=== PATIENT | female | born 1935 | race Caucasian/White ===

== ENCOUNTER 2019-10-21 10:45 | Inpatient (IN) | payer MEDICAID ==
[~2019-10-21] VITALS: Ht 152.4 cm; Wt 73.0 kg
[2019-10-21] MEDS ORDERED: ASPIRIN 81MG TABLET PO ONE (11:00)
[2019-10-21] MEDS ORDERED: FUROSEMIDE 40MG/4ML VIAL IV ONE (11:00)
[2019-10-21 11:21] LABS: BG BASE EXCESS 0.5 mmol/L (-2.0-2.0); BG CARBOXYHEMOGLOBIN 0.9 % (0.5-1.5); BG DEOXYHEMOGLOBIN 1.4 % (0.0-5.0); BG FRACTION INSPIRED OXYGEN 40; BG HCO3 ACT 23.5 mmol/L (22.0-26.0); BG METHEMOGLOBIN 0.2 % (0.0-1.5); BG OXYGEN SATURATION 98.6 % (92.0-98.5); BG OXYHEMOGLOBIN 97.5 % (94.0-97.0); BG PCO2 33.4 mmHg (35.0-45.0); BG PH 7.466 (7.350-7.450); BG SAMPLE SITE RIGHT RADIAL; BG VENT MODE MASK - BIPAP
[2019-10-21 11:22] LABS: BASOPHILS % 0.6 % (0.0-2.0); EOSINOPHILS % 0.3 % (0.0-5.0); HEMATOCRIT. 39.6 % (36.0-48.0); HEMOGLOBIN. 13.4 g/dL (12.0-16.0); LYMPHOCYTES % 8.8 % (20.0-50.0); MEAN CORPUSCULAR HEMOGLOBIN 31.7 pg (28.0-32.0); MEAN CORPUSCULAR VOLUME 93.9 fL (81.0-99.0); MEAN PLATELET VOLUME 10.9 fl (7.4-10.4); MONOCYTES % 4.5 % (2.0-8.0); NEUTROPHILS % 85.8 % (40.0-76.0); PLATELET 183 x1000/uL (130-400); RED BLOOD CELL COUNT 4.21 mill/uL (4.2-5.4); RED CELL DISTRIBUTION WIDTH 13.9 % (11.6-14.6)
[2019-10-21 11:26] LABS: CHLORIDE 106 mEq/L (98-107)
[2019-10-21 12:52] LABS: PROTHROMBIN TIME 10.4 sec (9.6-11.0)
[2019-10-21] MEDS ORDERED: DOCUSATE SODIUM 100MG CAPSULE PO PRN (20:45)
[2019-10-21] MEDS ORDERED: IPRATROPIUM/ALBUTEROL 0.5-3(2.5)MG/3ML NEB HHN PRN (20:45)
[2019-10-21] MEDS ORDERED: CLONIDINE 0.1MG TABLET PO PRN (20:45)
[2019-10-21] MEDS ORDERED: ONDANSETRON HCL 4MG/2ML INJ IV PRN (20:45)
[2019-10-21] MEDS ORDERED: HYDROCODONE/ACETAMINOPHEN 5/325MG TABLET PO PRN (20:45)
[2019-10-21] MEDS ORDERED: ACETAMINOPHEN 325MG TABLET PO PRN (20:45)
[2019-10-21 21:30] VITALS: BP 136/77
[2019-10-21 21:40] VITALS: BP 126/77
[2019-10-21] MEDS: LORAZEPAM 0.5MG TABLET PO PRN (23:08)
[2019-10-22] VITALS: BP 107/63
[2019-10-22] MEDS ORDERED: ASPI-1393 PO (00:10)
[2019-10-22] MEDS ORDERED: LOSA50TA41 PO (00:10)
[2019-10-22] MEDS ORDERED: LORA0.5T2 PO (00:10)
[2019-10-22] MEDS ORDERED: CARV6.2548 PO (00:10)
[2019-10-22] MEDS ORDERED: POTA10CA42 PO (00:10)
[2019-10-22] MEDS ORDERED: FURO40TA5 PO (00:10)
[2019-10-22 04:00] VITALS: BP 126/67
[2019-10-22 07:17] LABS: CHLORIDE 106 mEq/L (98-107)
[2019-10-22 07:20] LABS: BASOPHILS % 0.7 % (0.0-2.0); EOSINOPHILS % 1.3 % (0.0-5.0); HEMOGLOBIN. 13.1 g/dL (12.0-16.0); MEAN CORPUSCULAR HEMOGLOBIN 32.6 pg (28.0-32.0); MEAN CORPUSCULAR VOLUME 94.5 fL (81.0-99.0); MEAN PLATELET VOLUME 11.2 fl (7.4-10.4); MONOCYTES % 7.5 % (2.0-8.0); NEUTROPHILS % 74.5 % (40.0-76.0); PLATELET 159 x1000/uL (130-400); RED BLOOD CELL COUNT 4.02 mill/uL (4.2-5.4); RED CELL DISTRIBUTION WIDTH 13.7 % (11.6-14.6)
[2019-10-22 07:23] LABS: PHOSPHORUS 2.5 mg/dL (2.5-4.9)
[2019-10-22 07:24] LABS: LDL CHOLESTEROL 117 mg/dL (5-100)
[2019-10-22 07:26] LABS: HDL CHOLESTEROL 49 mg/dL (40-59)
[2019-10-22 08:00] VITALS: BP 108/44
[2019-10-22] MEDS: CARVEDILOL 6.25 MG TABLET PO SCH ×2 (09:00→21:00)
[2019-10-22] MEDS ORDERED: POTASSIUM CHLORIDE 10MEQ TABLET SR PO SCH (09:00)
[2019-10-22] MEDS ORDERED: FUROSEMIDE 40MG TABLET PO SCH (09:00)
[2019-10-22] MEDS ORDERED: ENOXAPARIN 40MG/0.4ML SYR SUBCUT SCH (09:00)
[2019-10-22] MEDS: LOSARTAN POTASSIUM 50 MG TABLET PO SCH ×2 (09:00→21:00)
[2019-10-22] MEDS ORDERED: ASPIRIN 81MG EC TABLET PO SCH (09:00)
[2019-10-22] MEDS: FUROSEMIDE 40MG/4ML VIAL IVP SCH ×2 (11:32→17:58)
[2019-10-22 12:00] VITALS: BP 101/59
[2019-10-22] MEDS: APIXABAN 5 MG TABLET PO SCH ×2 (12:46→21:41)
[2019-10-22 16:00] VITALS: BP 106/60
[2019-10-22 16:15] LABS: CLARITY URINE CLEAR (CLEAR); COLOR URINE YELLOW (YELLOW); KETONES URINE NEGATIVE (NEGATIVE); LEUKOCYTE ESTERASE URINE NEGATIVE (NEGATIVE); NITRITE URINE NEGATIVE (NEGATIVE); OCCULT BLOOD URINE NEGATIVE (NEGATIVE); PH URINE 6.5 (4.5-8.0); PROTEIN URINE NEGATIVE (NEGATIVE); SPECIFIC GRAVITY URINE 1.005 (1.005-1.030); UROBILINOGEN URINE 0.2 E.U./dL (0.2-1.0)
[2019-10-22 20:00] VITALS: BP 114/47
[2019-10-22] MEDS ORDERED: ATORVASTATIN CALCIUM 20MG TABLET PO SCH (21:00)
[2019-10-23] VITALS: BP 106/75
[2019-10-23] MEDS: LORAZEPAM 0.5MG TABLET PO PRN (01:31)
[2019-10-23 04:00] VITALS: BP 129/71
[2019-10-23 06:33] LABS: CHLORIDE 104 mEq/L (98-107)
[2019-10-23 06:38] LABS: BASOPHILS % 0.8 % (0.0-2.0); EOSINOPHILS % 1.2 % (0.0-5.0); HEMOGLOBIN. 13.2 g/dL (12.0-16.0); LYMPHOCYTES % 20.8 % (20.0-50.0); MEAN CORPUSCULAR HEMOGLOBIN 32.1 pg (28.0-32.0); MEAN CORPUSCULAR VOLUME 95.1 fL (81.0-99.0); MEAN PLATELET VOLUME 11.1 fl (7.4-10.4); MONOCYTES % 8.2 % (2.0-8.0); PLATELET 173 x1000/uL (130-400); RED CELL DISTRIBUTION WIDTH 13.7 % (11.6-14.6)
[2019-10-23 08:00] VITALS: BP 124/81
[2019-10-23] MEDS: CARVEDILOL 6.25 MG TABLET PO SCH (09:48)
[2019-10-23] MEDS: LOSARTAN POTASSIUM 50 MG TABLET PO SCH (09:48)
[2019-10-23] MEDS: APIXABAN 5 MG TABLET PO SCH (09:48)
[2019-10-23] MEDS: FUROSEMIDE 40MG/4ML VIAL IVP SCH (11:36)
[2019-10-23 12:00] VITALS: BP 83/44
[2019-10-23] MEDS ORDERED: POTASSIUM CHLORIDE 20MEQ/PACKET PO SCH (12:00)
[2019-10-23] MEDS ORDERED: APIX5TAB MT (13:39)
[2019-10-23 14:21] VITALS: BP 103/64
== END 2019-10-23 15:20 | disposition home or self-care (01) | DRG 194 ==
LOC: ER 10:45 → 6WST 12:15 → EDBEDREQ 12:22 → EDBEDREQSVC 12:22 → ENRESERV 20:03
PROVIDERS: ADMIT Internal Medicine; ATTEND Internal Medicine
PROC: 5A09357 Assistance with Respiratory Ventilation, Less than 24 Consecutive Hours, Continuous Positive Airway Pressure (ICD-10-PCS; principal; 2019-10-21)
DX: I11.0 Hypertensive heart disease with heart failure (principal); E87.4 Mixed disorder of acid-base balance; F03.90 Unspecified dementia, unspecified severity, without behavioral disturbance, psychotic disturbance, mood disturbance, and anxiety; I48.20 Chronic atrial fibrillation, unspecified; I44.7 Left bundle-branch block, unspecified; I50.23 Acute on chronic systolic (congestive) heart failure; E78.5 Hyperlipidemia, unspecified; I25.10 Atherosclerotic heart disease of native coronary artery without angina pectoris; K52.9 Noninfective gastroenteritis and colitis, unspecified; Z86.73 Personal history of transient ischemic attack (TIA), and cerebral infarction without residual deficits; I25.2 Old myocardial infarction; Z79.899 Other long term (current) drug therapy; Z79.82 Long term (current) use of aspirin
CPT/HCPCS: 36415; 36600; 71045; 80048; 80053; 80061; 81003; 82248; 82375; 82805; 83036; 83605; 83735; 83880; 84100; 84484; 85025; 87804; 93005; 93306; 94660; 96372; 99291; J1650; J1940; J7620

== ENCOUNTER 2019-12-09 03:55 | Inpatient (IN) | payer MEDICAID ==
[2019-12-09] VITALS (8 sets, daily range): BP systolic 118–139; BP diastolic 67–83
[~2019-12-09] VITALS: Ht 121.9 cm; Wt 68.9 kg
[~2019-12-09 03:55] MED LIST: APIX5TAB MT; CARV6.2548 PO; FURO40TA5 PO; LORA0.5T2 PO; LOSA50TA41 PO; POTA10CA42 PO
[2019-12-09 05:12] LABS: EOSINOPHILS % 0.7 % (0.0-5.0); HEMATOCRIT. 38.1 % (36.0-48.0); LYMPHOCYTES % 10.2 % (20.0-50.0); MEAN CORPUSCULAR HEMOGLOBIN 33.1 pg (28.0-32.0); MEAN CORPUSCULAR VOLUME 96.6 fL (81.0-99.0); MEAN PLATELET VOLUME 10.7 fl (7.4-10.4); MONOCYTES % 7.6 % (2.0-8.0); NEUTROPHILS % 80.5 % (40.0-76.0); PLATELET 165 x1000/uL (130-400); RED BLOOD CELL COUNT 3.94 mill/uL (4.2-5.4); RED CELL DISTRIBUTION WIDTH 14.3 % (11.6-14.6)
[2019-12-09 05:17] LABS: INR 1.1; PROTHROMBIN TIME 11.4 sec (9.6-11.0)
[2019-12-09 05:28] LABS: CHLORIDE 104 mEq/L (98-107)
[2019-12-09] MEDS ORDERED: DILTIAZEM HCL 5MG/ML 5ML VIAL IV ONE (05:30)
[2019-12-09] MEDS ORDERED: DILTIAZEM HCL 60MG TABLET PO ONE (06:00)
[2019-12-09] MEDS ORDERED: FUROSEMIDE 40MG/4ML VIAL IVP ONE (07:00)
[2019-12-09] MEDS ORDERED: ACETAMINOPHEN 325MG TABLET PO PRN (08:30)
[2019-12-09] MEDS ORDERED: ONDANSETRON HCL 4MG/2ML INJ IV PRN (08:30)
[2019-12-09] MEDS ORDERED: ASPI-864 PO (09:34)
[2019-12-09] MEDS: FUROSEMIDE 40MG/4ML VIAL IVP SCH ×2 (10:00→18:34)
[2019-12-09] MEDS: LOSARTAN POTASSIUM 25 MG TABLET PO SCH (10:32)
[2019-12-09] MEDS: CARVEDILOL 6.25 MG TABLET PO SCH ×2 (10:32→20:57)
[2019-12-09] MEDS: APIXABAN 5 MG TABLET PO SCH ×2 (10:32→18:34)
[2019-12-09] MEDS ORDERED: DILTIAZEM HCL 60MG TABLET PO SCH (12:00)
[2019-12-09] MEDS ORDERED: DIATR MEGLU/DIATRIZOATE SOLN 30ML PO SCH (14:15)
[2019-12-09 15:08] LABS: CLARITY URINE CLEAR (CLEAR); COLOR URINE YELLOW (YELLOW); KETONES URINE NEGATIVE (NEGATIVE); LEUKOCYTE ESTERASE URINE NEGATIVE (NEGATIVE); NITRITE URINE NEGATIVE (NEGATIVE); OCCULT BLOOD URINE NEGATIVE (NEGATIVE); PROTEIN URINE NEGATIVE (NEGATIVE); SPECIFIC GRAVITY URINE 1.005 (1.005-1.030); UROBILINOGEN URINE 0.2 E.U./dL (0.2-1.0)
[2019-12-09 17:42] LABS: CREATINE KINASE 63 IU/L (26-192)
[2019-12-09 17:43] LABS: T4 FREE 1.03 ng/dL (0.76-1.46)
[2019-12-09] MEDS: PANTOPRAZOLE SODIUM 40 MG/VIAL IV SCH (20:56)
[2019-12-09] MEDS ORDERED: FAMOTIDINE 20MG/2ML VIAL IV SCH (21:00)
[2019-12-09] MEDS ORDERED: IOHEXOL-300 100 ML BOTTLE ONE (22:14)
[2019-12-09] MEDS: LORAZEPAM 0.5MG TABLET PO SCH (23:12)
[2019-12-10] VITALS (11 sets, daily range): BP systolic 97–137; BP diastolic 45–99
[2019-12-10 00:15] LABS: CREATINE KINASE 107 IU/L (26-192)
[2019-12-10 00:16] LABS: CREATINE KINASE MB FRACTION 2.5 ng/mL (0.5-3.6)
[2019-12-10] MEDS: FUROSEMIDE 40MG/4ML VIAL IVP SCH ×2 (07:56→18:19)
[2019-12-10] MEDS: LOSARTAN POTASSIUM 25 MG TABLET PO SCH (08:08)
[2019-12-10] MEDS: CARVEDILOL 6.25 MG TABLET PO SCH ×2 (08:08→21:14)
[2019-12-10] MEDS: APIXABAN 5 MG TABLET PO SCH ×2 (08:09→16:47)
[2019-12-10] MEDS: PANTOPRAZOLE SODIUM 40 MG/VIAL IV SCH ×2 (08:48→21:12)
[2019-12-10 09:25] LABS: BASOPHILS % 1.1 % (0.0-2.0); HEMATOCRIT. 39.5 % (36.0-48.0); HEMOGLOBIN. 13.9 g/dL (12.0-16.0); LYMPHOCYTES % 16.2 % (20.0-50.0); MEAN CORPUSCULAR HEMOGLOBIN 33.7 pg (28.0-32.0); MEAN CORPUSCULAR VOLUME 95.8 fL (81.0-99.0); MEAN PLATELET VOLUME 10.2 fl (7.4-10.4); MONOCYTES % 8.1 % (2.0-8.0); NEUTROPHILS % 73.6 % (40.0-76.0); PLATELET 164 x1000/uL (130-400); RED BLOOD CELL COUNT 4.12 mill/uL (4.2-5.4)
[2019-12-10 09:36] LABS: CHLORIDE 99 mEq/L (98-107)
[2019-12-10 09:44] LABS: CREATINE KINASE 104 IU/L (26-192)
[2019-12-10 09:47] LABS: CREATINE KINASE MB FRACTION 2.3 ng/mL (0.5-3.6)
[2019-12-10] MEDS ORDERED: POTASSIUM CHLORIDE 20MEQ TABLET SR PO NR (11:00)
[2019-12-10] MEDS ORDERED: POTASSIUM CHLORIDE INJ 40 MEQ in DEXT 5% WATER 250 ML IV NR (12:00)
[2019-12-10] MEDS ORDERED: BACTERIOSTATIC SODIUM CHLORIDE 0.9% 30ML VIAL IJ ONE (14:08)
[2019-12-10] MEDS ORDERED: MIDAZOLAM HCL 5 MG/5 ML VIAL ONE (16:18)
[2019-12-10] MEDS ORDERED: FENTANYL CITRATE/PF 50MCG/ML 2ML VIAL ONE (16:18)
[2019-12-10] MEDS ORDERED: MIDAZOLAM HCL 5 MG/5 ML VIAL IV PRN (16:40)
[2019-12-10] MEDS: LORAZEPAM 0.5MG TABLET PO SCH (21:14)
[2019-12-10 21:28] LABS: HEMATOCRIT 42.6 % (36.0-48.0); HEMOGLOBIN 14.7 g/dL (12.0-16.0); MEAN CORPUSCULAR VOLUME 95.7 fL (81.0-99.0); PLATELET 177 x1000/uL (130-400); RED BLOOD CELL COUNT 4.45 mill/uL (4.2-5.4); RED CELL DISTRIBUTION WIDTH 14.4 % (11.6-14.6)
[2019-12-10 21:43] LABS: CHLORIDE 98 mEq/L (98-107)
[2019-12-10 22:19] LABS: HEPATITIS B SURFACE ANTIGEN NEGATIVE
[2019-12-10 22:49] LABS: HEPATITIS A AB IGM NEGATIVE (NEGATIVE)
[2019-12-11] VITALS: BP 136/94
[2019-12-11 04:00] VITALS: BP 106/56
[2019-12-11 08:00] VITALS: BP 101/66
[2019-12-11] MEDS: CARVEDILOL 6.25 MG TABLET PO SCH (09:00)
[2019-12-11] MEDS: LOSARTAN POTASSIUM 25 MG TABLET PO SCH (10:11)
[2019-12-11] MEDS: FUROSEMIDE 40MG/4ML VIAL IVP SCH ×2 (10:11→17:36)
[2019-12-11] MEDS: APIXABAN 5 MG TABLET PO SCH ×2 (10:12→17:36)
[2019-12-11 12:00] VITALS: BP 111/78
[2019-12-11 13:28] LABS: BASOPHILS % 1.2 % (0.0-2.0); EOSINOPHILS % 1.5 % (0.0-5.0); HEMATOCRIT. 42.1 % (36.0-48.0); HEMOGLOBIN. 14.4 g/dL (12.0-16.0); LYMPHOCYTES % 17.7 % (20.0-50.0); MEAN CORPUSCULAR HEMOGLOBIN 32.9 pg (28.0-32.0); MEAN CORPUSCULAR VOLUME 96.1 fL (81.0-99.0); MEAN PLATELET VOLUME 10.8 fl (7.4-10.4); MONOCYTES % 9.3 % (2.0-8.0); NEUTROPHILS % 70.3 % (40.0-76.0); PLATELET 208 x1000/uL (130-400); RED BLOOD CELL COUNT 4.39 mill/uL (4.2-5.4); RED CELL DISTRIBUTION WIDTH 14.1 % (11.6-14.6)
[2019-12-11] MEDS ORDERED: FURO-151 MT (14:14)
[2019-12-11 15:16] VITALS: BP 117/87
[2019-12-11 16:00] VITALS: BP 97/52
[2019-12-11] MEDS ORDERED: OMEPRAZOLE 20MG CAPSULE EXTENDED RELEASE PO SCH (21:00)
== END 2019-12-11 18:05 | disposition home or self-care (01) | DRG 133 ==
LOC: ER 03:55 → EDBEDREQTM 06:36 → EDBEDREQ 06:36 → EDBEDREQSVC 06:49 → 5EST 06:49 → EDBEDREQTM 06:49 → ENRESERV 07:39
PROVIDERS: ADMIT Internal Medicine; ATTEND Internal Medicine
PROC: 5A09357 Assistance with Respiratory Ventilation, Less than 24 Consecutive Hours, Continuous Positive Airway Pressure (ICD-10-PCS; 2019-12-09)
PROC: 0DB68ZX Excision of Stomach, Via Natural or Artificial Opening Endoscopic, Diagnostic (ICD-10-PCS; principal; 2019-12-10)
DX: J96.00 Acute respiratory failure, unspecified whether with hypoxia or hypercapnia (principal); I50.23 Acute on chronic systolic (congestive) heart failure; I42.9 Cardiomyopathy, unspecified; I48.91 Unspecified atrial fibrillation; R13.10 Dysphagia, unspecified; I85.00 Esophageal varices without bleeding; Z68.42 Body mass index [BMI] 45.0-49.9, adult; E66.9 Obesity, unspecified; E11.9 Type 2 diabetes mellitus without complications; I11.0 Hypertensive heart disease with heart failure; E78.5 Hyperlipidemia, unspecified; F03.90 Unspecified dementia, unspecified severity, without behavioral disturbance, psychotic disturbance, mood disturbance, and anxiety; I34.0 Nonrheumatic mitral (valve) insufficiency; I25.10 Atherosclerotic heart disease of native coronary artery without angina pectoris; K29.70 Gastritis, unspecified, without bleeding; K44.9 Diaphragmatic hernia without obstruction or gangrene; K57.30 Diverticulosis of large intestine without perforation or abscess without bleeding; K76.0 Fatty (change of) liver, not elsewhere classified; R04.0 Epistaxis; Z79.01 Long term (current) use of anticoagulants; Z86.73 Personal history of transient ischemic attack (TIA), and cerebral infarction without residual deficits; Z87.891 Personal history of nicotine dependence; Z79.899 Other long term (current) drug therapy; Z71.3 Dietary counseling and surveillance
CPT/HCPCS: 36415; 71045; 74177; 76700; 80048; 80053; 80061; 80076; 81003; 82105; 82378; 82550; 82553; 83036; 83880; 84439; 84443; 84484; 85025; 85027; 85379; 86705; 86709; 86803; 87015; 87045; 87340; 87427; 87449; 87493; 88305; 88313; 92610; 93005; 93306; 94660; 97162; 99285; C9113; J1940; J2250; J3010; J3480; J3490; J7060; Q9963; Q9967